=== PATIENT | male | born 1970 | race Caucasian/White ===

== ENCOUNTER 2022-03-13 14:08 | Day surgery (SDC) | payer OTHER ==
[~2022-03-13] VITALS: Ht 188 cm; Wt 97.8 kg
[2022-03-13] MEDS ORDERED: IBUP800 (14:46)
--- NOTE | 2022-03-13 16:34 | NUR ---
03/13/22 1634 JHONNY JONAS PT PAIN 12/10 , CHECKED WITH DR TO SEE WHAT TO DO FOR PAIN, DR MNEDEZ RECOMMENDED TO TAKE MOTRIN AND TYLENOL AT HOME FOR PAIN AND DO SITZ BATHS, PT VERBALIZED UNDERSTANDING
== END 2022-03-13 16:34 | disposition home or self-care (01) ==
LOC: ORSCSDS 14:08
PROVIDERS: Surgery
PROC: 0DJD8ZZ Inspection of Lower Intestinal Tract, Via Natural or Artificial Opening Endoscopic (ICD-10-PCS; principal; 2022-03-13 15:30)
DX: R19.4 Change in bowel habit (principal); K60.2 Anal fissure, unspecified; F31.9 Bipolar disorder, unspecified; F32.A Depression, unspecified; F17.210 Nicotine dependence, cigarettes, uncomplicated
CPT/HCPCS: J0330; J0461; J2405; J2704

== ENCOUNTER 2024-01-31 08:19 | Emergency (ER) | payer OTHER ==
[~2024-01-31] VITALS: Ht 188 cm; Wt 99.8 kg
[~2024-01-31 08:19] MED LIST: Diflucan150 MG; Flomax0.4 MG PO; GABA100; IBUP200 PO; IBUP800; IPRAT-ALBUT 0.5-3 ML; MIRT30 PO; PRAHYD1AE TOP
[2024-01-31 09:52] LABS: BASOPHILS PERCENT AUTO 1 % (0-2); EOSINOPHILS PERCENT AUTO 2 % (0-6); Hematocrit 44.6 % (37.0-53.0); Hemoglobin 15.1 g/dL (13.5-17.5); IMMATURE GRAN ABSOLUTE AUTO 0.07 K/mm3 (0.00-0.10); IMMATURE GRAN PERCENT AUTO 1 % (0-1); LYMPHOCYTES ABSOLUTE AUTO 2.84 K/mm3 (0.84-5.20); LYMPHOCYTES PERCENT AUTO 26 % (21-46); MONOCYTES ABSOLUTE AUTO 0.92 K/mm3 (0.16-1.47); MONOCYTES PERCENT AUTO 8 % (4-13); Mean Corpuscular HGB 32.1 pg (26.0-34.0); Mean Corpuscular HGB Conc 33.9 g/dL (31.5-36.5); Mean Corpuscular Volume 95 fL (80-100); Mean Platelet Volume 9.9 fL (9.1-12.4); NEUTROPHILS ABSOLUTE AUTO 6.92 K/mm3 (1.96-9.15); NEUTROPHILS PERCENT AUTO 63 % (41-73); Platelet Count 244 K/mm3 (150-400); RDW Coefficient Variation 12.6 % (11.7-14.2); RDW Standard Deviation 43.8 fL (35.1-46.3); Red Blood Cell Count 4.71 M/mm3 (4.30-5.90); White Blood Cell Count 11.05 K/mm3 (4.00-11.30)
[2024-01-31 10:19] LABS: Albumin, Blood 3.9 g/dL (3.4-5.0); Bilirubin, Total 0.8 mg/dL (0.1-1.0); Bun/Creatinine Ratio 18.2 (12.0-20.0); Calcium, Blood 8.9 mg/dL (8.5-10.1); Creatinine, Blood 0.94 mg/dL (0.60-1.20); Globulin, Blood 3.8 g/dL (2.2-4.0); Total Protein, Blood 7.7 g/dL (6.4-8.2)
[2024-01-31] MEDS ORDERED: Ampicillin Sod/Sulbactam Sod 1.5 GM in NS 100 ML IV ONE (12:00)
[2024-01-31] MEDS ORDERED: AMOCLA875 PO (12:27)
[2024-01-31 13:15] VITALS: BP 122/73
== END 2024-01-31 13:42 | disposition home or self-care (01) ==
LOC: ER 08:19
PROVIDERS: Student in an Organized Health Care Education/Training Program
DX: K04.7 Periapical abscess without sinus (principal); F17.210 Nicotine dependence, cigarettes, uncomplicated
CPT/HCPCS: 70487; 80053; 85025; 96374-59; 99284-25; J0295; Q9967